=== PATIENT | male | born 1970 | race Caucasian/White ===

== ENCOUNTER 2017-02-11 12:59 | Observation (INO) | payer BC ==
[2017-02-07 18:18] LABS: BASOPHILS 1.3 %; BASOPHILS ABSOLUTE 0.09 10/3/uL (0.0-0.16); EOSINOPHILS 6.4 %; EOSINOPHILS ABSOLUTE 0.44 10/3/uL (0.0-0.53); HEMATOCRIT 44.4 % (40.0-51.0); HEMOGLOBIN 15.3 g/dL (13.6-17.8); IMMATURE GRANULOCYTES 0.1 %; IMMATURE GRANULOCYTES ABSOLUTE 0.01 10/3/uL (0.0-0.11); LYMPHOCYTES 26.4 %; LYMPHOCYTES ABSOLUTE 1.82 10/3/uL (0.67-4.30); MEAN CORPUS HGB CONC 34.5 g/dL (32.0-36.0); MEAN CORPUSCULAR HEMOGLOB 30.4 pg (26.0-34.0); MEAN CORPUSCULAR VOLUME 88.1 fL (80-100); MONOCYTES 12.3 %; MONOCYTES ABSOLUTE 0.85 10/3/uL (0.21-1.20); NEUTROPHILS 53.5 %; NEUTROPHILS ABSOLUTE 3.69 10/3/uL (2.02-8.40); PLATELET COUNT 286 10/3/uL (150-400); RBC DISTRIBUTION WIDTH 12.5 % (12.0-16.0); RED CELL COUNT 5.04 10/6/uL (4.7-6.1); WHITE BLOOD CELLS 6.9 10/3/uL (4.5-10.5)
[2017-02-07 18:19] LABS: MANUAL DIFF NO %
--- NOTE | ~2017-02-11 | OP ---
Record Of Operation [facility] [address] [place]. [address] NAME: ABIGAIL LUNA : 70 STATUS : ADM Barron PAT#: [id number] AGE: 47 ADM/REG DATE : 02/11/17 MR#: [id number] REPORT SERV DATE: 02/12/17 DICTATED BY: SANFORD SHETTY III DATE: 02/11/17 REPORT STATUS : Draft TRANSCRIBED BY: MODL DATE: 02/11/17 DATE OF PROCEDURE: 02/11/2017 PROCEDURE: Cystoscopy, left retrograde, left ureteroscopy, and attempted stone extraction. PREOPERATIVE DIAGNOSIS: Left renal calculus. POSTOPERATIVE DIAGNOSIS: Left renal calculus. ANESTHESIA: General. SURGEON: Sanford Shetty M.D. DESCRIPTION OF PROCEDURE: Following induction of adequate general anesthesia, the patient placed in dorsal lithotomy position, prepped, and draped in a sterile fashion. The urethra was then noted to be normal. The prostate was minimally obstructed. The bladder was unremarkable without tumors or stones. Both orifices were somewhat small. A Pollack catheter was used to cannulate the orifice. On the fluoroscopy, I could see the faint outline of a stone and the retrograde confirmed that. A 0.38 wire Glidewire was passed up to the stone and despite manipulation would not pass around the stone. A 0.35 wire, straight and angled, were tried, and I could not bypass the stone and gain access to the upper tract. A Roadrunner wire was then used as a last resort, and I was able to manipulate the Roadrunner around the stone and up through some of the retained dye in the ureter to the upper tract. I then attempted to pass a Pollack, and this met with stiff resistance. A 4 cm balloon dilator was used twice to dilate up to the stone, and I left a 0.5 cm between the distal marker of the balloon and the stone so as not to compress the stone against the wall of the ureter. This was done twice in the ureter and the ureter just below the stone was too narrow to admit our smallest rigid scope. I tried over wire and around the wire and simply could not gain access. A retrograde showed no extravasation. At this point, I felt that there was really no other option but to place a double-J stent. Our smallest stent was a 5-Armenian 26 cm stent. This buckled immediately, and I elected to abort the procedure and have a nephrostomy placed. I spoke to the family and explained to them that the stone was impacted, the collecting system above was dilated, and since I could not stent him, he would need drainage with nephrostomy tube. I also discussed with Dr. Bower and asked if he could work the pigtail portion of the nephrostomy into the bladder, and he is going to attempt to do that. Risks complications on nephrostomy tube placement will be discussed by Dr. Bower. OB/MODL Sanford Shetty III, M.D. / [id number] Record Of Operation [address] [address] NAME: ABIGAIL LUNA : 70 STATUS : ADM Barron PAT#: [id number] AGE: 47 ADM/REG DATE : 02/11/17 MR#: [id number] REPORT SERV DATE: 02/12/17 DICTATED BY: SANFORD SHETTY III DATE: 02/11/17 REPORT STATUS : Draft TRANSCRIBED BY: DAYDAY DATE: 02/11/17 CC: Sanford Shetty III, M.D.
[~2017-02-11 12:59] MED LIST: *DENIES
[2017-02-12 05:29] LABS: BUN (BLOOD UREA NITROGEN) 11 MG/DL (6-23); CALCIUM, SERUM 8.5 MG/DL (8.5-10.4); CHLORIDE, SERUM 105 MMOL/L (96-112); CO2 (CARBON DIOXIDE) 28 MMOL/L (24-34); CREATININE 1.12 MG/DL (0.70-1.30); GFR AFRICAN AMERICAN 90 ML/MIN (>=60); GFR NON AFRICAN AMERICAN 78 ML/MIN (>=60); GLUCOSE, SERUM 96 MG/DL (60-99); POTASSIUM, SERUM 3.9 MMOL/L (3.5-5.3); SODIUM, SERUM 142 MMOL/L (135-148)
[2017-02-12 05:36] LABS: BASOPHILS 0.5 %; BASOPHILS ABSOLUTE 0.05 10/3/uL (0.0-0.16); EOSINOPHILS 1.6 %; EOSINOPHILS ABSOLUTE 0.15 10/3/uL (0.0-0.53); HEMOGLOBIN 12.9 g/dL (13.6-17.8); IMMATURE GRANULOCYTES 0.1 %; IMMATURE GRANULOCYTES ABSOLUTE 0.01 10/3/uL (0.0-0.11); LYMPHOCYTES 15.5 %; LYMPHOCYTES ABSOLUTE 1.48 10/3/uL (0.67-4.30); MEAN CORPUS HGB CONC 33.2 g/dL (32.0-36.0); MEAN CORPUSCULAR HEMOGLOB 30.1 pg (26.0-34.0); MEAN CORPUSCULAR VOLUME 90.7 fL (80-100); MONOCYTES 13.3 %; MONOCYTES ABSOLUTE 1.27 10/3/uL (0.21-1.20); NEUTROPHILS ABSOLUTE 6.61 10/3/uL (2.02-8.40); PLATELET COUNT 222 10/3/uL (150-400); RBC DISTRIBUTION WIDTH 12.8 % (12.0-16.0); RED CELL COUNT 4.28 10/6/uL (4.7-6.1); WHITE BLOOD CELLS 9.6 10/3/uL (4.5-10.5)
[2017-02-12 05:38] LABS: HEMATOCRIT 38.8 % (40.0-51.0); MANUAL DIFF NO %
[2017-02-12] MEDS ORDERED: TORATAB PO (08:11)
[2017-02-24] MEDS ORDERED: CLARITD PO (10:15)
== END 2017-02-12 12:27 | disposition home or self-care (01) ==
LOC: SDC 12:59 → SDC/OF 18:52 → 4SO 20:03
PROVIDERS: Urology
PROC: 0TC18ZZ Extirpation of Matter from Left Kidney, Via Natural or Artificial Opening Endoscopic (ICD-10-PCS; principal; 2017-02-11 14:30)
DX: N20.2 Calculus of kidney with calculus of ureter (principal)
CPT/HCPCS: 50432; 74420; 80048; 85025; C1726; C1729; C1758; C1769; C1894; C2617; G0378; J1170; J2250; J2405; J2710; J3010; Q9967

== ENCOUNTER 2017-02-26 12:50 | Day surgery (SDC) | payer BC ==
[2017-02-24 18:40] LABS: HEMOGLOBIN 14.4 g/dL (13.6-17.8)
[2017-02-24 18:42] LABS: HEMATOCRIT 42.9 % (40.0-51.0)
[2017-02-24 18:53] LABS: ASCORBIC ACID (UR NOT ORDER) NEG (NEG); BILIRUBIN, URINE NEGATIVE (NEG); KETONE, URINE NEGATIVE (NEG); LEUKOCYTE ESTERASE(NOT OR LARGE (NEG); WBC (NOT ORDERED) (RFLEX) 15 (0-5)
[2017-02-24 19:02] LABS: ALKALINE PHOSPHATASE 96 U/L (45-117); BUN (BLOOD UREA NITROGEN) 11 MG/DL (6-23); CALCIUM, SERUM 9.3 MG/DL (8.5-10.4); CHLORIDE, SERUM 105 MMOL/L (96-112); CO2 (CARBON DIOXIDE) 32 MMOL/L (24-34); CREATININE 1.18 MG/DL (0.70-1.30); GFR AFRICAN AMERICAN 85 ML/MIN (>=60); GFR NON AFRICAN AMERICAN 73 ML/MIN (>=60); GLOBULIN 3.9 G/DL (2.5-4.1); GLUCOSE, SERUM 92 MG/DL (60-99); POTASSIUM, SERUM 4.2 MMOL/L (3.5-5.3); SGOT(AST) 20 U/L (5-40); SGPT(ALT) 29 U/L (5-65); SODIUM, SERUM 143 MMOL/L (135-148); TOTAL BILIRUBIN 0.5 MG/DL (0-1.2); TOTAL PROTEIN 7.9 G/DL (6.0-8.5)
--- NOTE | ~2017-02-26 | OP ---
Record Of Operation [facility] [address] [place]. [address] NAME: ABIGAIL LUNA : 70 STATUS : [facility]#: [id number] AGE: 47 ADM/REG DATE : 02/26/17 MR#: [id number] REPORT SERV DATE: 02/27/17 DICTATED BY: SANFORD SHETTY III DATE: 02/26/17 REPORT STATUS : Draft TRANSCRIBED BY: MODL DATE: 02/26/17 DATE OF PROCEDURE: 02/26/2017 PROCEDURES: Cystoscopy, left retrograde, left ureteroscopic laser stone fragmentation and removal with insertion of double-J stent. PREOPERATIVE DIAGNOSIS: Left ureteral calculus. POSTOPERATIVE DIAGNOSIS: Left ureteral calculus. INDICATION: The patient presented with a mid ureteral stone which traveled down to the mid distal ureter. Approximately 12 days ago, I attempted to do ureteroscopy, could only pass a roadrunner wire, could not pass a stent or any type of drainage necessitating a nephrostomy. He subsequently had a pigtail nephrostomy and a ureteral catheter placed. He was induced under general anesthesia. The sutures were cut the holding the ureteral catheter and this was removed. He was placed in dorsal lithotomy position, prepped and draped in a sterile fashion. The urethra was normal. The prostate was minimally obstructed. The left orifice was dilate was dilated. It had been dilated with a balloon at the prior surgery. His orifice was cannulated with a wire placed up in the upper pole. Unfortunately, I could pass the scope only several centimeters along side the wire, the narrow segment that had prevented me from reaching the stone. It was still too tight. The scope, however, passed over the wire which could be manipulated to the stone. I removed the wire and fragmented the stone into 6 or more fragments. At least 4 to 5 fragments were removed. Several washed out with a cluster of small stones that I basketed. There were also 2 that migrated to cephalad. I was able to go to pass the scope up and retrieve it. I could pass the scope over the crossing of the vessels to about L5, but it was very tight, and on retrograde I did not see any definite filling defects other than I did not see any filling defects. At this point, I tried to place a 9.5 sheath and a flexible scope. This would not pass through the previous site of the stone nor would a flexible scope over a wire. I placed a [place] in the renal pelvis and did a retrograde. There were some filling defects. These were aspirated, were obviously air bubbles. No other filling defects were noted. At this point, the [place] was placed in the upper pole. The loop of the nephrostomy tube suture was cut and removed by the physician's assistant. We then opacified the system and placed a 5 x 26 stent of [employer] with the partial loop in the upper pole and a loop in the bladder. Bladder was drained. Procedure was terminated. Stones were sent for analysis. OB/MODL Sanford Shetty III, M.D. / [id number] CC: Record Of Operation [address] [address] NAME: ABIGAIL LUNA : 70 STATUS : [facility] PAT#: [id number] AGE: 47 ADM/REG DATE : 02/26/17 MR#: [id number] REPORT SERV DATE: 02/27/17 DICTATED BY: SANFORD SHETTY III DATE: 02/26/17 REPORT STATUS : Draft TRANSCRIBED BY: DAYDAY DATE: 02/26/17 Nayely Rivera III, DO
[~2017-02-26 12:50] MED LIST changes: +CLARITD PO; +TORATAB PO
[2017-03-05 01:41] LABS: STONE COMPOSITION TWO DNR (())
== END 2017-02-26 18:23 | disposition home or self-care (01) ==
LOC: SDC 12:50
PROVIDERS: Urology
PROC: 0T778DZ Dilation of Left Ureter with Intraluminal Device, Via Natural or Artificial Opening Endoscopic (ICD-10-PCS; 2017-02-26)
PROC: 0TF78ZZ Fragmentation in Left Ureter, Via Natural or Artificial Opening Endoscopic (ICD-10-PCS; principal; 2017-02-26 13:45)
DX: N20.1 Calculus of ureter (principal); F17.200 Nicotine dependence, unspecified, uncomplicated
CPT/HCPCS: 74420; 80053; 81001; 82365; 85014; 85018; 87086; C1758; C1769; C1894; C2617; J0330; J2250; J2370; J2405; J2710; J3010; Q9967